=== PATIENT | male | born 1930 | race Two or more races ===

== ENCOUNTER 2018-07-03 22:54 | Emergency (ER) | payer OTHER ==
[~2018-07-03] VITALS: Ht 170.2 cm; Wt 79.4 kg
[~2018-07-03 22:54] MED LIST: LOSARTAN POTASS25 MG; ZOCOR5 MG
== END 2018-07-04 06:30 | disposition home or self-care (01) ==
LOC: ER 22:54 → CPU-OBS 22:57
DX: R07.89 Other chest pain (principal)

== ENCOUNTER → 2018-10-03 | Outpatient (CLI) | payer OTHER | END | disposition home or self-care (01) | LOC: TOM 09-22 07:30 | DX: S06.6X2A Traumatic subarachnoid hemorrhage with loss of consciousness of 31 minutes to 59 minutes, initial encounter (principal); R55 Syncope and collapse ==

== ENCOUNTER 2021-07-09 09:00 | Outpatient (CLI) | payer OTHER | END 2021-07-09 09:15 | disposition home or self-care (01) | LOC: PPH VACUNA 09:00 | PROVIDERS: ATTEND Emergency Medicine Pediatric Emergency Medicine | DX: Z23 Encounter for immunization (principal) ==

== ENCOUNTER 2022-01-27 08:03 | Emergency (ER) | payer OTHER ==
[~2022-01-27] VITALS: Ht 172.7 cm; Wt 68.0 kg
[2022-01-27] MEDS ORDERED: NEURONTIN300 MG PO (09:03)
[2022-01-27] MEDS ORDERED: LEVODOPA25 GM MC (09:04)
[2022-01-27] MEDS ORDERED: PEPCID AC20 MG PO (09:04)
[2022-01-27] MEDS ORDERED: ZEGERID 40 MG1 EACH PO (09:05)
== END 2022-01-27 12:15 | disposition home or self-care (01) ==
LOC: ER 08:03
DX: T14.8XXA Other injury of unspecified body region, initial encounter (principal); W18.30XA Fall on same level, unspecified, initial encounter; Y93.9 Activity, unspecified; Y92.9 Unspecified place or not applicable; Y99.9 Unspecified external cause status; U07.1 COVID-19; I10 Essential (primary) hypertension